=== PATIENT | female | born 1970 | race Caucasian/White ===

== ENCOUNTER → 2021-02-11 | Outpatient (CLI) | payer BC ==
[~2021-02-11] MED LIST: BUTALB-ACETAMI1 EAC1 PO; ESCITALOPRAM OX10 MG PO; FOLIC ACID1 MG PO; HYDROCHLOROTH12.5 MG PO; JUBLIA4 ML TP; LINZESS290 MCG PO; NURTEC ODT75 MG PO; OMEPRAZOLE40 MG PO; PHENTERMINE H37.5 M1 PO; SUMATRIPTAN SU100 MG PO; TROKENDI XR100 MG PO; VITAMIN C1000 M2 PO
== END ==
LOC: KOH-I 12:18
DX: M79.672 Pain in left foot (principal)
CPT/HCPCS: 73630

== ENCOUNTER → 2022-03-19 | Outpatient (CLI) | payer OTHER | LOC: KOH-I 12:05 | DX: R20.0 Anesthesia of skin (principal); M47.812 Spondylosis without myelopathy or radiculopathy, cervical region | CPT/HCPCS: 72040 ==